=== PATIENT | male | born 2000 | race Caucasian/White ===

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

== ENCOUNTER 2023-04-22 13:23 | Inpatient (IN) ==
[2023-04-22 18:58] LABS: Urine Benzodiazepine Screen None Detected (None Detect); Urine Cannabinoids Screen Presumptive Positive (None Detect); Urine Opiates Screen None Detected (None Detect)
[2023-04-22] MEDS ORDERED: OLANZapine 10 mg TAB*ODT PO ONE (21:49)
[2023-04-23] MEDS ORDERED: Al Hydrox/Mg Hydrox/Simet LIQ 30 ML UDC PO PRN (09:05)
[2023-04-24 08:46] LABS: HDL Cholesterol 38.7 mg/dL
[2023-04-26] MEDS ORDERED: Paliperidone SUSTENNA 234 MG/1.5 ML IM ONE (11:00)
[2023-04-27] MEDS ORDERED: Magnesium CITRATE LIQ 300 ML BTL PO ONE (11:12)
[2023-04-27] MEDS ORDERED: Polyethylene Glycol 3350 BTL 238 GM BTL PO ONE (11:30)
[2023-04-30] MEDS ORDERED: Paliperidone SUSTENNA 156 MG/1 ML IM ONE (09:00)
[2023-04-30 09:52] VITALS: BP 115/76
== END 2023-04-30 11:35 | disposition home or self-care (01) | DRG 750 ==
LOC: ED 13:23 → BSU 04-23 09:05 → EDHOLD 04-23 09:05 → BSU 04-23 11:37
PROVIDERS: ADMIT Psychiatry & Neurology Psychiatry; ATTEND Psychiatry & Neurology Psychiatry

== ENCOUNTER 2023-07-04 13:55 | Inpatient (IN) ==
[2023-07-04 15:18] LABS: ABS Eosinophils 0.1 10^3/uL (0.0-0.5); ABS Lymphocytes 1.5 10^3/uL (1.0-4.8); ABS Monocytes 0.6 10^3/uL (0.0-1.1); ABS Neutrophils 4.6 10^3/uL (1.5-7.6); ABS Nucleated RBC 0.01 10^3/ul; Eosinophil % 1.3 %; Hemoglobin 13.9 g/dL (13.2-16.3); Lymphocyte % 21.4 %; Mean Corpuscular Hemoglobin 29.8 pg (27-33); Mean Corpuscular Volume 87.6 fL (80-97); Mean Platelet Volume 7.7 fL (7.5-11.2); Nucleated Red Blood Cells % 0.1 %/100WBC (0.0-0.8); Platelet Count 274 10^3/uL (150-450); Red Blood Count 4.68 10^6/uL (4.06-5.63); Red Cell Distribution Width 14.3 % (12-17); White Blood Count 6.8 10^3/uL (3.6-10.2)
[2023-07-04 15:53] LABS: Acetaminophen < 15 mcg/mL; Alcohol, S < 13 mg/dL (<13); Salicylate < 2.50 mg/dL (<30)
[2023-07-04 16:04] LABS: TSH Ultra Thyroid Stim Horm 1.53 mcIU/mL (0.34-5.60)
[2023-07-04 16:18] LABS: ALT 15 U/L (7-52); Albumin 4.5 g/dL (3.2-5.2); Albumin/Globulin Ratio 1.6 (1-3); Alkaline Phosphatase 44 U/L (35-149); Blood Urea Nitrogen 16 mg/dL (6-24); CO2 Carbon Dioxide 29 mmol/L (22-32); Calcium 8.9 mg/dL (8.6-10.3); Chloride 105 mmol/L (101-111); Creatinine, Serum 0.84 mg/dL (0.67-1.17); Globulin 2.9 g/dL (2-4); Glucose 94 mg/dL (70-100); Sodium 140 mmol/L (135-145); Total Bilirubin 0.3 mg/dL (0.2-1.0); Total Protein 7.4 g/dL (6.4-8.9); eGFR CKD-EPI 126.4 (>60)
[2023-07-04 16:32] LABS: Urine Appearance Clear; Urine Bilirubin Negative (Negative); Urine Blood Negative (Negative); Urine Color Yellow; Urine Glucose Negative (Negative); Urine Ketones Negative (Negative); Urine Nitrite Negative (Negative); Urine Protein Negative (Negative); Urine Specific Gravity 1.012 (1.002-1.030); Urine Urobilinogen Negative (Negative)
[2023-07-04 17:04] LABS: AST 17 U/L (13-39); Anion Gap 6 mmol/L (2-16)
[2023-07-04 17:08] LABS: Urine Benzodiazepine Screen None Detected (None Detect); Urine Cannabinoids Screen None Detected (None Detect); Urine Opiates Screen None Detected (None Detect)
[2023-07-04] MEDS ORDERED: Al Hydrox/Mg Hydrox/Simet LIQ 30 ML UDC PO PRN (18:27)
[2023-07-04] MEDS ORDERED: risperiDONE-M 1 mg Oradis TAB PO PRN (18:28)
[2023-07-05] MEDS ORDERED: Paliperidone SUSTENNA 156 MG/1 ML IM ONE (10:15)
[2023-07-05 10:38] LABS: HDL Cholesterol 55.9 mg/dL
[2023-07-05] MEDS: Vitamin THERAPEUTIC TAB PO SCH (12:56)
[2023-07-06] MEDS: Vitamin THERAPEUTIC TAB PO SCH (09:12)
[2023-07-07] MEDS: Vitamin THERAPEUTIC TAB PO SCH (08:26)
[2023-07-07 11:07] VITALS: BP 108/68
[2023-07-08] MEDS: Vitamin THERAPEUTIC TAB PO SCH (08:10)
[2023-07-09] MEDS: Vitamin THERAPEUTIC TAB PO SCH (08:57)
[2023-07-09] MEDS ORDERED: Paliperidone SUSTENNA 156 MG/1 ML IM ONE (10:01)
== END 2023-07-09 16:40 | disposition home or self-care (01) | DRG 750 ==
LOC: ED 13:55 → EDHOLD 17:27 → BSU 19:08
PROVIDERS: ADMIT Psychiatry & Neurology Psychiatry; ATTEND Student in an Organized Health Care Education/Training Program

== ENCOUNTER 2024-02-29 11:24 | Inpatient (IN) ==
[2024-02-29 15:55] LABS: ABS Basophils 0.1 10^3/uL (0.0-0.1); ABS Lymphocytes 1.5 10^3/uL (1.0-4.8); ABS Monocytes 0.6 10^3/uL (0.0-1.1); ABS Neutrophils 3.9 10^3/uL (1.5-7.6); ABS Nucleated RBC 0.01 10^3/ul; Eosinophil % 0.1 %; Hematocrit 40.4 % (38-53); Hemoglobin 13.5 g/dL (13.2-16.3); Mean Corpuscular Hemoglobin 29.3 pg (27-33); Mean Corpuscular Hgb Conc 33.5 g/dL (31-36); Mean Corpuscular Volume 87.5 fL (80-97); Mean Platelet Volume 8.4 fL (7.5-11.2); Nucleated Red Blood Cells % 0.1 %/100WBC (0.0-0.8); Platelet Count 267 10^3/uL (150-450); Red Blood Count 4.61 10^6/uL (4.06-5.63); Red Cell Distribution Width 13.8 % (12-17)
[2024-02-29 16:41] LABS: Urine Appearance Clear; Urine Bilirubin Negative (Negative); Urine Blood Negative (Negative); Urine Color Yellow; Urine Glucose Negative (Negative); Urine Ketones 1+ (Negative); Urine Nitrite Negative (Negative); Urine Protein Trace (Negative); Urine Specific Gravity 1.027 (1.002-1.030); Urine Urobilinogen Negative (Negative)
[2024-02-29 16:50] LABS: Albumin 4.6 g/dL (3.2-5.2); Albumin/Globulin Ratio 1.9 (1-3); Calcium 9.7 mg/dL (8.6-10.3); Creatinine, Serum 0.83 mg/dL (0.67-1.17); Globulin 2.4 g/dL (2-4); Potassium 3.9 mmol/L (3.5-5.0); Total Bilirubin 0.6 mg/dL (0.2-1.0); eGFR CKD-EPI 126.1 (>60)
[2024-02-29 17:01] LABS: Urine Benzodiazepine Screen None Detected (None Detect); Urine Cannabinoids Screen None Detected (None Detect); Urine Opiates Screen None Detected (None Detect)
[2024-02-29] MEDS ORDERED: Al Hydrox/Mg Hydrox/Simet LIQ 30 ML UDC PO PRN (21:37)
[2024-03-01] MEDS: Vitamin THERAPEUTIC TAB PO SCH (09:04)
[2024-03-03 10:26] VITALS: BP 109/73
== END 2024-03-03 13:55 | disposition home or self-care (01) | DRG 750 ==
LOC: ED 11:24 → EDHOLD 22:00 → BSU 03-01 06:42
PROVIDERS: ADMIT Psychiatry & Neurology Addiction Psychiatry; ATTEND Psychiatry & Neurology Psychiatry